=== PATIENT | male | born 1995 | race Caucasian/White ===

== ENCOUNTER 2017-04-10 14:21 | Inpatient (IN) | payer BC, OTHER ==
[~2017-04-10] VITALS: Ht 175.3 cm; Wt 54.4 kg
--- NOTE | 2017-04-10 16:00 | NUR ---
Intake Assessment; Patient is a 21 year old male, AOX4, presented to [facility] to detoxify from Ketamine. Patient is from [place] and arrived at intake at approximately 1530. Patient is the primary source of information. Patient appears slightly anxious with flushed face. Admitting vital signs are as follows; BP 114/72, HR 96, Temperature 98.3, SPo2 98%, respirations 18, denies pain. Educated patient regarding unit protocols and policies, patient verbalized understanding.
[2017-04-10] MEDS ORDERED: LOPERAMIDE HCL 2 MG CAPSULE PO PRN ×2 (16:30)
[2017-04-10] MEDS ORDERED: ACETAMINOPHEN 325 MG TABLET PO PRN (16:30)
[2017-04-10] MEDS ORDERED: diphenhydrAMINE 50 MG CAPSULE PO PRN (16:30)
[2017-04-10] MEDS ORDERED: CLONIDINE HCL 0.1 MG TABLET PO PRN (16:30)
[2017-04-10] MEDS ORDERED: METHOCARBAMOL 750 MG TABLET PO PRN (16:30)
[2017-04-10] MEDS ORDERED: MIRALAX 17 GM POWD.PACK PO PRN (16:30)
[2017-04-10] MEDS ORDERED: MAGNESIUM HYDROXIDE 30 ML LIQUID UDC PO PRN (16:30)
[2017-04-10] MEDS ORDERED: LORAZEPAM 1 MG TABLET PO PRN ×2 (16:30)
[2017-04-10] MEDS ORDERED: IBUPROFEN 600 MG TABLET PO PRN (16:30)
[2017-04-10] MEDS ORDERED: MAG HYDROX/AL HYDROX/SIMETH 30 ML LIQUID UDC PO PRN (16:30)
[2017-04-10] MEDS ORDERED: LORAZEPAM 2 MG/1 ML VIAL IM PRN (16:30)
[2017-04-10] MEDS ORDERED: DICYCLOMINE HCL 20 MG TABLET PO PRN (16:30)
[2017-04-10 17:02] LABS: *AMPHETAMINE, URINE NEGATIVE (NEGATIVE); *BARBITURATE, URINE NEGATIVE (NEGATIVE); *CANNABINOID, URINE POSITIVE (NEGATIVE); *COCCAINE, URINE NEGATIVE (NEGATIVE); *OPIATE, URINE NEGATIVE (NEGATIVE); *PHENCYCLIDINE SCREEN,URINE NEGATIVE (NEGATIVE)
[2017-04-10 17:30] LABS: BASOPHILS % (AUTO) 0.5 % (0.0-2.0); EOSINOPHILS # (AUTO) 0.1 K/uL (0.0-0.7); EOSINOPHILS % (AUTO) 1.2 % (0.0-7.0); HEMATOCRIT 45.9 % (36.7-47.1); HEMOGLOBIN 15.9 g/dL (12.5-16.3); LYMPHOCYTES # (AUTO) 1.9 K/uL (20.0-40.0); LYMPHOCYTES % (AUTO) 37.4 % (20.5-51.5); MEAN CORPUSCULAR HEMOGLOBIN 31.4 uug (23.8-33.4); MEAN CORPUSCULAR HGB CONC 35 g/dL (32.5-36.3); MEAN CORPUSCULAR VOLUME 90.6 fL (73.0-96.2); MONOCYTES # (AUTO) 0.7 K/uL (2.0-10.0); MONOCYTES % (AUTO) 14.3 % (0.0-11.0); NEUTROPHILS # (AUTO) 2.4 K/uL (1.8-8.9); NEUTROPHILS % (AUTO) 46.6 % (38.5-71.5); PLATELET COUNT (AUTO) 202 K/uL (152-348); RED BLOOD CELL COUNT(AUTO) 5.06 MIL/uL (4.06-5.63); WHITE BLOOD COUNT (AUTO) 5.1 K/uL (3.6-10.2)
[2017-04-10 17:42] LABS: ETHANOL < 3 MG/DL (0-0)
[2017-04-10 17:46] LABS: ALANINE AMINOTRANSFERASE 27 U/L (16-63); ALKALINE PHOSPHATASE 107 U/L (50-136); ASPARTATE AMINOTRANSFERASE 16 U/L (15-37); BILIRUBIN,TOTAL 0.3 mg/dL (0.2-1.0); CARBON DIOXIDE 31 mmol/L (21-32); CHLORIDE 101 mmol/L (98-107); GLUCOSE 90 mg/dL (74-106); MAGNESIUM 1.8 mg/dL (1.8-2.4); POTASSIUM 3.6 mmol/L (3.5-5.1); TOTAL PROTEIN, SERUM 7.9 g/dL (6.4-8.2); UREA NITROGEN, BLOOD 9 mg/dL (7-18)
[2017-04-10 17:56] LABS: THYROID STIMULATING HORMONE 1.109 mIU/mL (0.358-3.740)
--- NOTE | 2017-04-10 18:15 | NUR ---
Admission note; Patient is a 21 year old male, AOX4, presented to [facility] to detoxify from Ketamine. Patient is from [place] and arrived at intake at approximately 1530. Patient is the primary source of information. Patient appears slightly anxious with flushed face. Admitting vital signs are as follows; BP 114/72, HR 96, Temperature 98.3, SPo2 98%, respirations 18, denies pain. Patient denies any allergies and denies any history of seizures. Discussed substance use. Patient reports a history of multiple illicit substance use including alcohol opioids, cannabis, and hallucinogens. Patient reports currently using ketamine 5-8 grams via nasal insufflation on a daily basis since November. Last use was on the day prior to admission. He reports also consuming unspecified quantities of alcohol on an intermittent, non-daily basis, last consumed on the day of admission. Medical and psychiatric history discussed. Patient reported history of tonsillectomy when he was 4 y/o, bipolar disorder and ADHD. He has struggled with multiple attempts at sobriety, the longest being for 55 days, ending in August 2016. He reports never being to a treatment center in the past. Skin check done with no significant findings. Oriented patient to the unit. Patient is on fall precaution. Bed in lowest position, call light within reach. All safety measures secured. Will continue to monitor patient. Patient was seen and evaluated by Md at intake office.
--- NOTE | 2017-04-10 19:00 | NUR ---
End of shift note; Patient is AOX4. Patient remained compliant with treatment plan and medication regime. Detailed report given to night nurse.
--- NOTE | 2017-04-10 19:10 | NUR ---
START OF SHIFT Patient is a 21-year-old patient admitted on 04/10/17 for Ketamine dependence (since November 2016) with concurrent alcohol consumption of unspecified amounts/day for the last 6 years. Patient has a past medical history of bipolar disorder and ADHD, with history of tonsillectomy. Patient is FULL code, NKA, on a regular diet. Patient is currently not on a taper, with PRN Ativan on hand. Upon assessment, patient is in bed watching television, alert and oriented x4, skin intact. Patient is on fall and seizure precautions. Safety measures in place, bed locked in low position, side rails up x2, call light within reach. Will continue to monitor.
[2017-04-10 20:00] VITALS: BP 102/62
[2017-04-11] VITALS: BP 86/52
--- NOTE | 2017-04-11 | NUR ---
MIDNIGHT COWS & CIWA DEFERRED Midnight CIWA deferred due to patient asleep; to be assessed and scored while patient is awake, per protocol. Patient's respirations are even and unlabored, 17/min. Safety measures in place, bed locked in low position, side rails up x2, call light within reach. Will continue to monitor. Addendum: 04/11/17 at 0557 by JOE MONZON LVN Patient's midnight CIWA has been deferred.
[2017-04-11 04:00] VITALS: BP 97/58
--- NOTE | 2017-04-11 04:00 | NUR ---
4AM CIWA DEFERRED 4AM CIWA deferred due to patient asleep; to be assessed and scored while patient is awake, per protocol. Patient's respirations are even and unlabored, 16/min. Safety measures in place, bed locked in low position, side rails up x2, call light within reach. Will continue to monitor.
--- NOTE | 2017-04-11 07:02 | NUR ---
END OF SHIFT Patient is a 21-year-old patient admitted on 04/10/17 for Ketamine dependence (since November 2016) with concurrent alcohol consumption of unspecified amounts/day for the last 6 years. Patient has a past medical history of bipolar disorder and ADHD, with history of tonsillectomy. Patient is FULL code, NKA, on a regular diet. Patient is currently not on a taper, with PRN Ativan on hand. Patient slept for 9 hours, total intake 650 mL, void x1, stool x0. Last CIWA was 2; no PRNs were given. Safety measures in place, bed locked in low position, side rails up x2, call light within reach. Will endorse to day shift.
[2017-04-11 08:00] VITALS: BP 97/63
--- NOTE | 2017-04-11 08:05 | NUR ---
Start of shift note; Received report from night nurse. Patient denies any allergies and denies any history of seizures. Patient reports a history of multiple illicit substance use including alcohol opioids, cannabis, and hallucinogens. Patient reports currently using ketamine 5-8 grams via nasal insufflation on a daily basis since November. Last use was on the day prior to admission. He reports also consuming unspecified quantities of alcohol on an intermittent, non-daily basis, last consumed on the day of admission. Patient reported history of tonsillectomy when he was 4 y/o, bipolar disorder and ADHD. Patient slept fro 9 hours. Patient's last CIWA is 2 per endorsement. All safety measures secured. Will continue to monitor patient.
[2017-04-11] MEDS ORDERED: TUBERCULIN,PURIF.PROT.DERIV. 5 TU/0.1 ML TEST ID ONE (09:00)
[2017-04-11 12:00] VITALS: BP 98/61
[2017-04-11] MEDS: OSELTAMIVIR PHOSPHATE 75 MG CAPSULE PO SCH (12:57)
--- NOTE | 2017-04-11 13:46 | NUR ---
MD order; MD ordered prophylactic Tamiflu to prevent flu. Patient is afebrile,no s/s of flu at this time. Will continue to monitor patient .
[2017-04-11] MEDS: GUAIFENESIN SUGAR FREE 100 MG/5 ML UDC PO PRN ×2 (14:47→21:47)
--- NOTE | 2017-04-11 14:47 | NUR ---
PRN medication; Patient is complaining of cough.PRN Robitussin 200mg PO given as per MD order. Will continue to monitor patient.
--- NOTE | 2017-04-11 15:47 | NUR ---
Re-assessment; Patient stated improvement of cough. Will continue to monitor patient.
[2017-04-11 16:00] VITALS: BP 109/67
--- NOTE | 2017-04-11 18:35 | NUR ---
End of shift note; Patient is AOX4. Patient denies any allergies and denies any history of seizures. Patient reports using ketamine 5-8 grams via nasal insufflations on a daily basis since November. Last use was on the day prior to admission. He reports also consuming unspecified quantities of alcohol on an intermittent, non-daily basis, last consumed on the day of admission. Patient reported history of tonsillectomy when he was 4 y/o, bipolar disorder and ADHD. Patient remained compliant with treatment plan and medication regime. All safety measures secured. Met all needs.
--- NOTE | 2017-04-11 19:00 | NUR ---
START OF SHIFT Patient is a 21-year-old patient admitted on 04/10/17 for Ketamine dependence (since November 2016) with history of alcohol abuse/dependence for the past 6 years. Patient has a past medical history of bipolar disorder and ADHD, with history of tonsillectomy. Patient is FULL code, NKA, on a regular diet. Patient is currently not on any tapers, with PRN medications on hand. Upon assessment patient is alert and oriented x4, skin intact. Patient reports he has been coughing today and he has received PRN Robitussin. Patient reports that his cough in non-productive. Patient is on fall and seizure precautions. Safety measures in place, bed locked in low position, side rails up x2, call light within reach. Will continue to monitor.
[2017-04-11 20:00] VITALS: BP 113/65
--- NOTE | 2017-04-11 21:47 | NUR ---
PRN ROBITUSSIN Patient has a persistent dry cough. PRN Robitussin 200mg given PO (100mg/5mL). Safety measures in place, call light within reach. Will reassess in one hour.
--- NOTE | 2017-04-11 22:47 | NUR ---
PRN ROBITUSSIN REASSESSMENT Patient reports very little improvement in coughing since administration of PRN Robitussin. PRN Robitussin mildly effective at this time. Safety measures in place, call light within reach. Will continue to monitor.
--- NOTE | 2017-04-12 | NUR ---
MIDNIGHT VITALS REFUSED, CIWA DEFERRED Patient refused midnight vital signs, CIWA deferred due to patient sleeping; to be assessed and scored while patient is awake. Respirations 14/min, even and unlabored. Safety measures in place, call light within reach. Will continue to monitor.
[2017-04-12] MEDS: BENZOCAINE/MENTH/CETYLPYRD LOZENGE MM PRN ×2 (01:34→05:06)
--- NOTE | 2017-04-12 01:34 | NUR ---
PRN CEPACOL LOZENGE Patient's coughing has not subsided, and PRN Robitussin was only mildly effective. PRN Cepacol lozenge given to patient PO. Safety measures in place, call light within reach. Will reassess in one hour.
[2017-04-12] MEDS ORDERED: BENZOCAINE/MENTH/CETYLPYRD LOZENGE MM ONE ×2 (01:49→05:21)
--- NOTE | 2017-04-12 02:34 | NUR ---
PRN CEPACOL REASSESSMENT Patient has been coughing noticeably less, and is able to rest in bed. PRN Cepacol effective. Safety measures in place, call light within reach. Will continue to monitor.
[2017-04-12 04:00] VITALS: BP 102/46
--- NOTE | 2017-04-12 04:00 | NUR ---
4AM CIWA DEFERRED CIWA deferred due to patient sleeping; to be assessed and scored while patient is awake. Respirations 16/min, even and unlabored. Safety measures in place, call light within reach. Will continue to monitor.
--- NOTE | 2017-04-12 05:06 | NUR ---
PRN CEPACOL Patient continues to cough intermittently, even while asleep. PRN Cepacol lozenge administered PO. Safety measures in place, call light within reach. Will reassess in one hour.
--- NOTE | 2017-04-12 06:06 | NUR ---
PRN CEPACOL REASSESSMENT Patient states that Cepacol was effective; patient has been coughing noticeably less in the last hour since Cepacol was given. Safety measures in place, call light within reach. Will continue to monitor.
--- NOTE | 2017-04-12 07:00 | NUR ---
END OF SHIFT Patient is a 21-year-old patient admitted on 04/10/17 for Ketamine dependence (since November 2016) with history of alcohol abuse/dependence for the past 6 years. Patient has a past medical history of bipolar disorder and ADHD, with history of tonsillectomy. Patient is FULL code, NKA, on a regular diet. Patient is currently not on any tapers, with PRN medications on hand. Patient slept for about 5 hours, total intake was 2,184 mL, void x4, stool x2. Patient was given PRN Robitussin and Cepacol for his non-productive cough. Patient states that the Cepacol lozenges were effective and helpful. Patient is on fall and seizure precautions. Safety measures in place, bed locked in low position, side rails up x2, call light within reach. Will endorse to day shift.
--- NOTE | 2017-04-12 07:49 | NUR ---
Start of shift note; Received report from night nurse. Patient is a 21 year old male admitted on 04/10/17 for Ketamine and ETOH dependence. Patient is currently under observation, no taper orders noted. Patient is AOX4, complaining of cough and sore throat. Patient received Cepacol and Robitussin last night, noted to be effective. Patient is on fall precaution. All safety measures secured. Will continue to monitor patient.
[2017-04-12 08:00] VITALS: BP 103/67
[2017-04-12] MEDS: OSELTAMIVIR PHOSPHATE 75 MG CAPSULE PO SCH (08:39)
[2017-04-12 12:00] VITALS: BP 110/69
[2017-04-12] MEDS ORDERED: DIPH50CA37 PO (14:01)
[2017-04-12] MEDS ORDERED: IBUP-1955 PO (14:01)
[2017-04-12] MEDS ORDERED: GUAI600T53 PO (14:01)
[2017-04-12] MEDS ORDERED: HYDR25CA PO (14:01)
[2017-04-12 16:00] VITALS: BP 113/71
--- NOTE | 2017-04-12 18:48 | NUR ---
End of shift note; Patient is AOX4. Patient denies any allergies and denies any history of seizures. Patient reports using ketamine 5-8 grams via nasal insufflations on a daily basis since November. Last use was on the day prior to admission. He reports also consuming unspecified quantities of alcohol on an intermittent, non-daily basis, last consumed on the day of admission. Patient reported history of tonsillectomy when he was 4 y/o, bipolar disorder and ADHD. Patient remained compliant with treatment plan and medication regime. Patient is medically cleared for discharge tomorrow. No PRN medication given. Last CIWA score is 1. All safety measures secured. Met all needs.
[2017-04-12 20:00] VITALS: BP 110/72
--- NOTE | 2017-04-12 20:00 | NUR ---
START OF SHIFT NOTE RECEIVED REPORT FROM DAY SHIFT NURSE. PATIENT IS A 21 YEAR OLD MALE ADMITTED FOR KETAMINE AND ETOH DEPENDENCE. PATIENT WAS UNDER OBSERVATION,PRN ATIVAN. PATIENT IS MEDICALLY CLEARED TO BE DISCHARGE TOMORROW. PATIENT DID NOT REQUIRE ANY PRN MEDICATION. CONTINUE ON TAMIFLU FOR INFLUENZA PROPHYLAXIS. LAST CIWA 1. PATIENT ALERT AND ORIENTED X 4. RESPIRATION EVEN AND UNLABORED. PATIENT STATES HE FEELS BETTER JUST A SLIGHT COUGHING ," I HAD CEPACOL AND ROBITUSSIN TODAY" . ON FALL/SEIZURE PRECAUTION. SAFETY MEASURES IN PLACE. CALL LIGHT IN REACH. WILL CONTINUE TO MONITOR.
--- NOTE | 2017-04-13 | NUR ---
CIWA DEFERRED PATIENT SLEEPING. CIWA DEFERRED. PATIENT REFUSED VS. RESPIRATION EVEN AND UNLABORED. SAFETY MEASURES IN PLACE. CALL LIGHT IN REACH. WILL CONTINUE TO MONITOR.
--- NOTE | 2017-04-13 04:00 | NUR ---
CIWA DEFERRED PATIENT SLEEPING. CIWA DEFERRED. PATIENT REFUSED VS. RESPIRATION EVEN AND UNLABORED. SAFETY MEASURES IN PLACE. CALL LIGHT IN REACH. WILL CONTINUE TO MONITOR.
[2017-04-13 08:00] VITALS: BP 98/62
[2017-04-13] MEDS: OSELTAMIVIR PHOSPHATE 75 MG CAPSULE PO SCH (08:57)
--- NOTE | 2017-04-13 09:51 | NUR ---
Start of shift note; Received report from night nurse. Patient is a 21 year old male admitted on 04/10/17 for Ketamine and ETOH dependence. Patient is currently under observation, no taper orders noted. Patient is AOX4. Patient is medically cleared for discharge today. Patient is on fall precaution. All safety measures secured. Will continue to monitor patient.
--- NOTE | 2017-04-13 09:53 | NUR ---
Discharge note; Patient is AOX4. Patient completed treatment without any adverse reactions. All valuables, belongings and prescriptions given to patient. Patient is afebrile, left in a stable condition. Patient left at exactly 0940 on 04/13/17. Met all patient's needs.
[2017-04-13 22:19] LABS: HEPATITIS B SURFACE AG Negative (Negative)
== END 2017-04-13 09:40 | DRG 895 ==
LOC: SRC 15:41
PROVIDERS: ADMIT Internal Medicine; ATTEND Internal Medicine
PROC: HZ2ZZZZ Detoxification Services for Substance Abuse Treatment (ICD-10-PCS; principal; 2017-04-10)
PROC: HZ41ZZZ Group Counseling for Substance Abuse Treatment, Behavioral (ICD-10-PCS; 2017-04-11)
DX: F16.20 Hallucinogen dependence, uncomplicated (principal); F10.10 Alcohol abuse, uncomplicated; F11.21 Opioid dependence, in remission; F17.210 Nicotine dependence, cigarettes, uncomplicated; Z59.1 Inadequate housing; Z81.1 Family history of alcohol abuse and dependence; Z81.8 Family history of other mental and behavioral disorders; Y90.9 Presence of alcohol in blood, level not specified; F60.3 Borderline personality disorder; J00 Acute nasopharyngitis [common cold]
CPT/HCPCS: 36415; 70030-TC; 80307; 80349; 83735; 84443; 85025; 86592; 86705; 86803; 87340; 87806; G0480